=== PATIENT | female | born 1980 | race Two or more races ===

== ENCOUNTER → 2025-08-23 06:41 | Outpatient (CLI) | payer OTHER ==
[2025-08-23 09:27] LABS: ALT/SGPT 21 U/L (12-78); AST/SGOT 15 U/L (15-37); BILIRUBIN TOTAL 0.54 mg/dL (0.3-1.2); BUN CREA RATIO 28 (7.0-25.0); CHOL HDL RATIO 2.9 (0-5.0); CREATININE SERUM 0.40 mg/dL (0.55-1.02); GFR 172.61; GLOBULINA 4.0 G/DL (2.4-3.5); GLUCOSE FASTING 140 mg/dL (65-100); HDL 45 mg/dl (40-60); LDL 66 mg/dl (0-130); OSMOLALITY SERUM 287 MOSM/KG (275-295); VLDL 17 (0-39)
[2025-08-23 09:39] LABS: T4 FREE 2.56 NG/ML (0.76-1.46); TSH < 0.005 uIU/mL (0.358-3.74)
[2025-08-23 11:06] LABS: CORTISOL 10.37 ug/dl; VITAMIN D3 25 HYDROXY 38.45 ng/ml (30-120)
[2025-08-24 09:11] LABS: DHEA-SULFATE 98.0 ug/dL (41.2-243.7); LEUTEINIZING HORMONE 31.8 mIU/mL (.); PROLACTIN 12.2 ng/mL (4.8-33.4)
[2025-08-24 11:07] LABS: ACTH 49.8 pg/mL (7.2-63.3)
== END | disposition home or self-care (01) ==
LOC: LAB 06:41
DX: E78.2 Mixed hyperlipidemia (principal); E03.8 Other specified hypothyroidism; C73 Malignant neoplasm of thyroid gland; N91.1 Secondary amenorrhea; E24.9 Cushing's syndrome, unspecified; E22.1 Hyperprolactinemia; E29.1 Testicular hypofunction

== ENCOUNTER 2025-08-23 07:38 | Outpatient (CLI) | payer OTHER | END 2025-08-23 07:39 | disposition home or self-care (01) | LOC: TOM 07:38 | DX: J45.51 Severe persistent asthma with (acute) exacerbation (principal) ==

== ENCOUNTER 2025-10-08 12:46 | Outpatient (CLI) | payer OTHER | END 2025-10-08 12:47 | disposition home or self-care (01) | LOC: SONOGRAMA 12:46 | PROVIDERS: ATTEND Internal Medicine Critical Care Medicine | DX: N83.291 Other ovarian cyst, right side (principal) ==